=== PATIENT | male | born 1955 | race Caucasian/White ===

== ENCOUNTER 2017-08-16 13:50 | Emergency (ER) | payer BC, OTHER ==
[2017-08-16] MEDS ORDERED: Ketorolac 60 MG/2 ML SDV IM ONE (14:28)
--- NOTE | 2017-08-16 14:29 | EDM.PDOC ---
ED HPI GENERAL MEDICAL PROBLEM - General Chief Complaint: Back Pain or Injury Stated Complaint: BACK PAIN/FELL YESTERDAY Time Seen by Provider: 08/16/17 14:03 Source of Information: Reports: Patient History Limitations: Reports: No Limitations - History of Present Illness INITIAL COMMENTS - FREE TEXT/NARRATIVE: [place] inj[place]. He states he has a hx of low back injury from many years ago. He has taken some ibuprofen and tylenol that helped a little. Denies numbness or tingling into the legs; no cauda equida symptoms. He is able to be upright and bear weight. Onset Date: 08/15/17 Duration: Day(s): (1) Location: Reports: Back (low) Severity: Moderate Improves with: Reports: Immobilization Worsens with: Reports: Movement. Denies: None Associated Symptoms: Reports: No Other Symptoms Lower Back Pain Score (Numeric/FACES): 8 - Related Data Allergies Allergy/AdvReac Type Severity Reaction Status Date / Time No Known Allergies Allergy Verified 08/16/17 14:33 Home Meds: Home Meds Acetaminophen/HYDROcodone [Chidester 325-5 MG] 1 tab PO Q6H PRN #15 tab 08/16/17 [Rx ] Cyclobenzaprine [Flexeril] 10 mg PO TID PRN #15 tab 08/16/17 [Rx] ED ROS GENERAL - Review of Systems Review Of Systems: See Below Constitutional: Reports: No Symptoms Respiratory: Reports: No Symptoms Cardiovascular: Reports: No Symptoms : Reports: No Symptoms Musculoskeletal: Reports: Back Pain Skin: Reports: No Symptoms Neurological: Reports: No Symptoms ED EXAM, GENERAL - Physical Exam Exam: See Below Exam Limited By: No Limitations General Appearance: Alert, WD/WN, No Apparent Distress Head: Atraumatic, Normocephalic Neck: Normal Inspection, Full Range of Motion Respiratory/Chest: No Respiratory Distress, Lungs Clear, Normal Breath Sounds, No Accessory Muscle Use Cardiovascular: Regular Rate, Rhythm, No Edema GI/Abdominal: Normal Bowel Sounds, Soft, Non-Tender Back Exam: Full Range of Motion, Decreased Range of Motion, Paraspinal Tenderness Extremities: Normal Inspection, Normal Range of Motion Neurological: Alert, Oriented, CN II-XII Intact, Normal Cognition Psychiatric: Normal Affect, Normal Mood Skin Exam: Warm, Dry, Intact, Normal Color, No Rash Course - Vital Signs Last Recorded V/S: Last Vital Signs Temp 96.6 F 08/16/17 15:04 Pulse 91 08/16/17 15:04 Resp 14 08/16/17 15:04 BP 170/84 H 08/16/17 15:04 Pulse Ox 95 08/16/17 15:04 - Orders/Labs/Meds Orders: Active Orders 24 hr Category Date Time Status Lumbar Spine 2 or 3V [CR] Stat Exams 08/16/17 14:28 Taken Meds: Medications Discontinued Medications Generic Name Dose Route Start Last Admin Trade Name Nacho PRN Reason Stop Dose Admin Ketorolac Tromethamine 60 mg 08/16/17 14:28 08/16/17 14:34 Toradol IM 08/16/17 14:29 60 mg ONETIME ONE Administration - Re-Assessments/Exams Free Text/Narrative Re-Assessment/Exam: 08/16/17 19:44 Was given IM Toradol which helped some; took the edge off. Xray per my review doesn't show any acute fracture. Pending radiology review. Departure - Departure Time of Disposition: 15:23 Disposition: Home, Self-Care 01 Condition: Good Clinical Impression: Low back pain - Discharge Information Prescriptions: Acetaminophen/HYDROcodone [Chidester 325-5 MG] 1 tab PO Q6H PRN #15 tab PRN Reason: Pain Cyclobenzaprine [Flexeril] 10 mg PO TID PRN #15 tab PRN Reason: Muscle Spasm Instructions: Back Pain, Adult Referrals: PCP,None [Primary Care Provider] - Forms: ED Department Discharge Additional Instructions: Ice to the affected area for pain Chidester is a pain medication, a narcotic; you are not to drive or drink alcohol with this. Avoid use with the muscle relaxer prescribed, Flexeril. Push fluids Stretch Follow up with your doctor; if pain is persistent, you will likely need a MRI. - My Orders Last 24 Hours: My Active Orders 08/16/17 14:28 Lumbar Spine 2 or 3V [CR] Stat - Assessment/Plan Last 24 Hours: My Active Orders 08/16/17 14:28 Lumbar Spine 2 or 3V [CR] Stat
--- NOTE | 2017-08-18 09:08 | CR ---
Lumbar Spine 2 or 3V INDICATION: fell, lower back pain, limited rom COMPARISON: None FINDINGS: 3 views. 5 lumbar-type vertebra. No compression deformities or subluxations. No disc space narrowing.
== END 2017-08-16 15:43 | disposition home or self-care (01) ==
LOC: JP.ED 13:50
DX: M54.5 Low back pain (principal)
CPT/HCPCS: 72100; 96372; 99284; J1885